=== PATIENT | male | born 1940 | race Caucasian/White ===

== ENCOUNTER → 2020-01-24 09:36 | Outpatient (CLI) | payer MEDICARE, SELFPAY ==
--- NOTE | 2020-01-24 09:37 | CA_ITS ---
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 Study suggests 50-69% stenosis of the left internal cartoid artery. Right vertebral artery shows antegrade flow. No color flow or doppler could be obtained in the left vertebral artery, ? obstruction. Conclusion Study suggests 20-49% stenosis of the right internal cartoid artery. Study suggests 50-69% stenosis of the left internal cartoid artery. Right vertebral artery shows antegrade flow. No color flow or doppler could be obtained in the left vertebral artery, ? obstruction. Electronically signed by : Jaden Cullen MD 01/24/2020 15:31:08
== END ==
PROVIDERS: PCP Family Medicine; Visit Provider Urology
DX: R42 Dizziness and giddiness (principal)
CPT/HCPCS: 93880

== ENCOUNTER → 2021-12-25 14:50 | Outpatient (CLI) | payer MEDICARE, SELFPAY ==
[2021-12-25 16:25] LABS: Chloride 105 mmol/L (98-107); Potassium 5.1 mmoL/L (3.5-5.1); Sodium 137 mmol/L (136-145)
[2021-12-25 16:27] LABS: Bilirubin,Unconjugated 0.3 mg/dL (0.0-1.1); Blood Urea Nitrogen 17 mg/dl (9-20); Estimated Glomerular Filt Rate 92 ml/min (>60); GFR (African American) 112 ML/MIN (>60)
[2021-12-25 16:28] LABS: Alanine Aminotransferase 10 U/L (12-78); Albumin Level 4.1 g/dl (3.5-5.0); Alkaline Phosphatase 49 U/L (38-126); Anion Gap 9.1 mEq/L (5-15); Aspartate Amino Transferase 33 U/L (17-59); Bilirubin,Direct 0.1 mg/dl (0.0-0.4); Bilirubin,Indirect 0.2 mg/dL (0.0-0.9); Bilirubin,Total 0.3 mg/dl (0.2-1.3); Calcium 9.7 mg/dl (8.4-10.2); Carbon Dioxide 28 mmol/L (22.0-30.0); Cholesterol 288 mg/dl (140-200); Glucose 129 mg/dl (74-100); Magnesium 1.8 mg/dl (1.6-2.3); Total Protein,Serum 6.4 g/dl (6.3-8.2); Triglycerides 206 mg/dl (30-150); VLDL Cholesterol 41 mg/dL (0-40)
[2021-12-25 16:29] LABS: Chol/HDL Ratio 6.1 (1-3.5); HDL Cholesterol 47 mg/dl (40-60)
[2021-12-25 16:39] LABS: Direct LDL Cholesterol 196.08 mg/dL (100-129)
[2021-12-25 16:48] LABS: Free T4 (Free Thyroxine) 0.91 ng/dl (0.78-2.19)
[2021-12-25 17:01] LABS: Basophils # 0.1 K/mm3 (0-0.2); Basophils % 0.9 % (0.1-2.0); Eosinophils # 0.4 K/mm3 (0.0-0.4); Eosinophils % 2.9 % (0.1-12.0); Hematocrit 41.8 % (42.0-52.0); Hemoglobin 12.8 g/dL (14.1-18.0); Lymphocytes # 5.8 K/mm3 (0.7-4.5); Lymphocytes % 46.7 % (10-50); Mean Corpuscular HGB Conc 30.6 g/dL (31.8-35.4); Mean Corpuscular Hemoglobin 32.1 pg (27.0-31.2); Mean Corpuscular Volume 105.1 fl (80-94); Mean Platelet Volume 8.9 fl (7.4-10.4); Monocytes # 0.6 K/mm3 (0.1-1.0); Monocytes % 4.7 % (1.7-9.3); Neutrophils # 5.5 K/mm3 (1.8-7.8); Neutrophils % 44.7 % (37.0-80.0); Platelet Count 297 K/mm3 (142-424); Red Blood Count 3.98 M/mm3 (4.60-6.20); Red Cell Distribution Width 13.6 % (11.5-17.5); White Blood Count 12.3 K/mm3 (4.8-10.8)
[2021-12-25 17:06] LABS: Thyroid Stimulating Hormone 2.11 uIU/mL (0.465-4.68)
== END ==
PROVIDERS: PCP Family Medicine; Visit Provider Nurse Practitioner
DX: E78.5 Hyperlipidemia, unspecified (principal); I44.0 Atrioventricular block, first degree; I48.0 Paroxysmal atrial fibrillation; R94.30 Abnormal result of cardiovascular function study, unspecified; Z01.812 Encounter for preprocedural laboratory examination; Z20.822 Contact with and (suspected) exposure to COVID-19; I20.8 Other forms of angina pectoris
CPT/HCPCS: 80048; 80061; 80076; 83735; 84439; 84443; 85025; C9803; U0003; U0005

== ENCOUNTER 2021-12-27 09:16 | Day surgery (SDC) | payer MEDICARE, SELFPAY ==
[2021-12-27] VITALS (14 sets, daily range): BP systolic 112–158; BP diastolic 58–73; PULSE 51–64; RESP 16–18; TEMP 36.9; O2SAT 95–97; BMI 28.0
--- NOTE | 2021-12-27 | IR_ITS ---
APPROVED REPORT Patient Location: Outpatient Kios[facility] Sales Representative: JANNET Fang RT (R) PROCEDURES Selective coronary angiogram Drug-eluting stent deployment to the ostial proximal mid distal left main artery extending into the proximal LAD Drug-eluting stent deployment to the ostial proximal dominant right coronary INDICATION Coronary artery disease, Abnormal Myoview, Angina pectoris, Informed consent was obtained prior to the procedure. COMPLICATIONS None Estimated Blood Loss: Less than 10 mls TECHNIQUE One percent lidocaine used to anesthetize the right anterior aspect of the wrist. The right radial artery was accessed via the Seldinger technique. A 6 [place] sheath was placed in the right radial artery. 2.5 mg of verapamil, 800 mcg of nitroglycerin, 1mg Lidocaine and 5000 U Heparin were given through the arterial sheath. The papa catheter was also used to perform selective coronary angiography.. At the end of the procedure therapeutic heparin was administered followed by a Choice PT extra-support wire. 4 mm x 18 mm resolute [place] stent was placed in the ostial left main artery extending into the proximal LAD and deployed at 20 sammie. A 4.5 mm x 8 mm balloon was then deployed at 24 sammie in the distal left main artery proximal and ostial segment. Excellent angiographic results were obtained with RADHA-3 flow being present before and after the procedure. The guide catheter was then placed in the right coronary artery followed by the same choice PT wire and a 4 mm x 26 mm resolute [place] stent was deployed at 20 sammie reducing the critical stenosis to 0%. RADHA-3 flow was present down the left main artery LAD and right coronary before and after the procedure at the end the procedure the apparatus was removed the sheath was removed and hemostasis was achieved using TR banding patient was transferred to postop putting in stable condition ANGIOGRAPHIC RESULTS The left main artery Has an ostial 50% stenosis with a distal 70% stenosis The left anterior descending artery Has proximal atheromatous plaque nothing greater than 20% with mid vessel diffuse 20% stenosis The circumflex artery Vestigial and patent The right coronary artery Is a massively large dominant vessel and has a critical proximal 90% concentric stenosis distally there are additional 20% stenoses. The posterior descending artery has a mid vessel concentric 70 to 80% stenosis and a 2.75 mm vessel. The RANKIN ventriculogram reveals Not performed The left ventricular end-diastolic pressure Not measured IMPRESSION Critical coronary artery disease as described above Successful stenting of the left main artery extending into the proximal LAD reducing the severe stenosis to 0% Successful stenting of a critically diseased dominant right coronary artery reducing the severe disease to 0% PLAN 1. Brilinta 90 twice daily plus aspirin 81 mg daily 2. LDL less than 55 to be achieved with high intensity statin 3. Avoidance of tobacco products 4. Risk factor modification 5. Cardiac rehabilitation 6. For the time being I have decided to leave the posterior descending artery stenosis alone given it is at a bifurcation. Should patient continue to experience angina pectoris he can be brought back to the [facility] Rep[facility] for percutaneous stenting of this vessel. I believe his angina will be alleviated with the above revascularization Electronically signed by : Fernando Hernandez MD 12/27/2021 14:27:38
--- NOTE | 2021-12-27 14:49 | HMH.PHACLD ---
Errol Alvarado has received discharge medication counseling on the following medications: ASPIRIN (NEW) PLAVIX (NEW) METOPROLOL PATIENT HAS ALLERGY TO STATINS AND NO ACEI/ARB AT THIS TIME PER MD. PATIENT VERBALIZED UNDERSTANDING AND HAD NO QUESTIONS AT THIS TIME. -MARIANELA YAO, PHARMD
[2021-12-27 15:53] LABS: CATHL Activated Clotting Time 228 SEC (74-125)
== END 2021-12-27 15:21 | disposition home or self-care (01) ==
LOC: CATHLAB 09:18
PROVIDERS: PCP Family Medicine; Visit Provider Internal Medicine
DX: I25.10 Atherosclerotic heart disease of native coronary artery without angina pectoris (principal); Z79.01 Long term (current) use of anticoagulants; Z79.899 Other long term (current) drug therapy; I25.83 Coronary atherosclerosis due to lipid rich plaque; I10 Essential (primary) hypertension; I44.0 Atrioventricular block, first degree; I48.0 Paroxysmal atrial fibrillation; E78.5 Hyperlipidemia, unspecified
CPT/HCPCS: 85347; 92928; 93458; 99152; 99153; C1725; C1769; C1876; C9600; J1644; Q9967

== ENCOUNTER → 2022-01-03 09:35 | Outpatient (CLI) | payer MEDICARE, SELFPAY ==
[2022-01-03 10:27] LABS: Basophils # 0.2 K/mm3 (0-0.2); Basophils % 1.5 % (0.1-2.0); Eosinophils # 0.4 K/mm3 (0.0-0.4); Eosinophils % 3.3 % (0.1-12.0); Hemoglobin 12.8 g/dL (14.1-18.0); Lymphocytes # 4.9 K/mm3 (0.7-4.5); Lymphocytes % 42.6 % (10-50); Mean Corpuscular HGB Conc 31.1 g/dL (31.8-35.4); Mean Corpuscular Hemoglobin 33.4 pg (27.0-31.2); Mean Corpuscular Volume 107.3 fl (80-94); Mean Platelet Volume 8.3 fl (7.4-10.4); Monocytes # 0.8 K/mm3 (0.1-1.0); Monocytes % 6.7 % (1.7-9.3); Neutrophils # 5.2 K/mm3 (1.8-7.8); Neutrophils % 45.9 % (37.0-80.0); Platelet Count 272 K/mm3 (142-424); Red Blood Count 3.82 M/mm3 (4.60-6.20); Red Cell Distribution Width 13.7 % (11.5-17.5); White Blood Count 11.4 K/mm3 (4.8-10.8)
[2022-01-03 10:51] LABS: Anion Gap 9.6 mEq/L (5-15); Blood Urea Nitrogen 16 mg/dl (9-20); Calcium 8.8 mg/dl (8.4-10.2); Carbon Dioxide 27 mmol/L (22.0-30.0); Chloride 103 mmol/L (98-107); Estimated Glomerular Filt Rate 108 ml/min (>60); GFR (African American) 130 ML/MIN (>60); Glucose 87 mg/dl (74-100); Potassium 4.6 mmoL/L (3.5-5.1); Sodium 135 mmol/L (136-145)
== END ==
PROVIDERS: PCP Family Medicine; Visit Provider Internal Medicine
DX: I25.10 Atherosclerotic heart disease of native coronary artery without angina pectoris (principal); I48.0 Paroxysmal atrial fibrillation; I44.0 Atrioventricular block, first degree; E78.5 Hyperlipidemia, unspecified; R94.30 Abnormal result of cardiovascular function study, unspecified
CPT/HCPCS: 36415; 80048; 85025

== ENCOUNTER → 2022-01-08 10:01 | Outpatient (CLI) | payer MEDICARE, SELFPAY ==
--- NOTE | 2022-01-08 10:03 | CA_ITS ---
FINAL REPORT TECHNIQUE: Color Doppler, duplex Doppler and salas scale sonography of the bilateral neck arterial vasculature was performed. Velocities were measured in the carotid arteries. Stenosis evaluation based on the validated velocity criteria. CLINICAL HISTORY: NELSON bilateral,HLD,CAD FINDINGS: The peak systolic velocity of the right common carotid artery is 119 cm/s. The peak systolic velocity of the right internal carotid artery is 208 cm/s and end diastolic velocity 45 cm/s. The ICA/CCA ratio is 1.75. A mild to moderate amount of plaque is present. The right external carotid artery is patent. The right vertebral artery is patent with antegrade flow. The peak systolic velocity of the left common carotid artery is 105 cm/s. The peak systolic velocity of the left internal carotid artery is 272 cm/s and end diastolic velocity 87 cm/s. The ICA/CCA ratio is 2.95. A ogow-gi-jqlkbyip amount of plaque is present. The left external carotid artery is patent.The left vertebral artery is patent with antegrade flow. IMPRESSION: There is 50-69 % carotid stenosis on the right. There is 70-99 % carotid stenosis on the left. Recommend CTA or catheter angiogram. Reviewed, Interpreted and Dictated by Checo Francois III, MD Transcribed by Loan Campos Authenticated and [facility]
--- NOTE | 2022-01-08 10:03 | CA_ITS ---
APPROVED REPORT EXAM: Comprehensive 2D, Doppler, and color-flow Echocardiogram Sap Fico Architect: Concha Bill CRT Ht: 5 ft 11 in Wt: 201lbs BSA: 2.11 BP: 118/65 mmHg Indications: CAD, HLD, NELSON, SOB, PAF, ABN STRESS 2D Dimensions LVOT 2.01 cm (M/F) 1.5-2.5 LA Volume 38.10 mL LA Volume Index 18.10 mL/m2 (M/F) 16-34 M-Mode Dimensions RVDd 2.80 cm (0.9-2.6) LA Diam 3.16 cm (1.9-4.0) LVDd 4.48 cm (3.5-5.7) Ao Diam 4.16 cm (2.0-3.7) LVDs 3.22 cm (3.5-5.7) IVSd 1.62 cm (0.6-1.1) PWd 1.10 cm (0.6-1.1) EF (Teich) 54.50% FS 28.10% EDV (Teich) 91.50 mL TAPSE 3.02 (<1.7) ESV (Teich) 41.60 mL LV Diastology E Decel Time 167.00 (160-240 msec) E/A Ratio 0.76 MED E' 4.60 (< 7 cm/sec) MED A' 7.10 cm/s E'/MED E' Ratio 12.39 (>14) LAT E' 5.20 (<10 cm/sec) LAT A' 9.30 cm/s E/LAT E' Ratio 10.96 (>14) Aortic Valve LVOT Max 153.00 (70-110 cm/s) LVOT VTI 41.11 cm AoV Peak Ritchie. 230.00 (50-130 cm/s) AI PHT 707.00 ms AO Peak GR. 21.30 mmHg AO Mean GR. 12.60 (<5 mmHg) AO VTI 54.27 (18-25 cm) TRINA (VTI) 2.40 (2.5-4.5 cm2) Mitral Valve MV A Velocity 75.00 (40-130 cm/s) E/A Ratio 0.76 MV Decel. Time 167.00 (160-240 ms) Pulmonary Valve PV Peak Velocity 223.00 (50-150 cm/s) Tricuspid Valve TR P. Velocity 294.00 cm/s RAP Estimate 10.00 mmHg RVSP 44.60 mmHg Left Ventricle Left atrium is mildly enlarged, left ventricle is normal size, mild concentric left ventricular hypertrophy, estimated ejection fraction 55% with no regional wall motion abnormality. Grade 1 diastolic dysfunction seen without tissue Doppler evidence of raise left atrial pressure. Right Ventricle Right atrium and right ventricle are normal size and contractility. Aortic Valve Aortic valve is thickened and calcified with mean gradient across aortic valve of 15 mmHg represents mild aortic stenosis, there is mild aortic insufficiency. Mitral Valve Mitral valve leaflets are minimally thickened, there is no mitral stenosis, there is mild mitral regurgitation. Tricuspid Valve Tricuspid valve grossly normal, there is mild tricuspid regurgitation, tricuspid regurgitation jet velocity is inadequate for calculation of the right ventricular systolic pressure. Pulmonic Valve Pulmonic valve is poorly visualized. Great Vessels Aortic root is normal size. Inferior vena cava is poorly visualized. Pericardium No significant pericardial effusion noted. Conclusion 1. Mildly enlarged left rhythm, normal left ventricular size, mild concentric left ventricular hypertrophy, estimated ejection fraction 55% with no regional wall motion abnormality, grade 1 diastolic dysfunction seen without tissue Doppler evidence of raise left atrial pressure. 2. Thickened and calcified aortic valve with mild aortic stenosis, there is mild aortic insufficiency. 3. Mild mitral and tricuspid regurgitation. 4. No significant pericardial effusion noted. 5. Inferior vena cava is poorly visualized. Electronically signed by : Tremayne Ang MD 01/08/2022 21:12:53
== END ==
PROVIDERS: PCP Family Medicine; Visit Provider Nurse Practitioner
DX: E78.5 Hyperlipidemia, unspecified (principal); I44.0 Atrioventricular block, first degree; I48.0 Paroxysmal atrial fibrillation; R94.30 Abnormal result of cardiovascular function study, unspecified; R42 Dizziness and giddiness; Z95.5 Presence of coronary angioplasty implant and graft; I65.23 Occlusion and stenosis of bilateral carotid arteries
CPT/HCPCS: 93306; 93880

== ENCOUNTER 2024-09-20 10:47 | Outpatient (CLI) | payer MEDICARE, SELFPAY ==
--- NOTE | 2024-09-20 10:51 | US_ITS ---
FINAL REPORT CLINICAL HISTORY: LIVER DISORDER FINDINGS: ULTRASOUND RIGHT UPPER QUADRANT Sonographic imaging of the right upper quadrant was obtained. The pancreas is partially obscured. The liver is unremarkable. There is no evidence of gallstones. There is no gallbladder wall thickening. There is no biliary ductal dilatation. The common duct is normal at 4 mm. Limited images of the right kidney demonstrate a 27 mm benign-appearing cyst. IMPRESSION: No acute process. Reviewed, Interpreted and Dictated by Nadia Amador MD Transcribed by Karen Parnell Authenticated and [facility]
== END 2024-09-20 23:59 | disposition home or self-care (01) ==
LOC: RAD 10:48
PROVIDERS: PCP Family Medicine; Visit Provider Family Medicine
DX: K76.9 Liver disease, unspecified (principal)
CPT/HCPCS: 76705